=== PATIENT | female | born 1975 | race Caucasian/White ===

== ENCOUNTER 2017-01-03 11:30 | Emergency (ER) | payer MEDICAID ==
[~2017-01-03] VITALS: Ht 139.7 cm; Wt 49.0 kg
[~2017-01-03 11:30] MED LIST: ALPRAZOLAM0.5 M3 PO; BUPROPION HCL150 M1 PO; DEPO-PROVER150 MG/M3 IM
--- NOTE | 2017-01-03 12:19 | Urgent Treatment Center Report ---
History of Present Issue Date/Time Seen by Provider 01/03/17 1200 Visit Reason Pt arrived:Walked Presenting Problem:PT REPORTS PAIN IN BACK OF NECK X2, PT REPORTS PAIN IS CAUSING HER TO NOT SLEEP WELL. Location if Accident: Onset of symptoms date/time:01/01/17/ or onset unknown for:MEDICAL HX UNKNOWN Have you (or family members/close friends) recently traveled outside the [place]? N If Yes, where/when: Have you had exposure to infectious disease within the past month? TB? Other? Specify: Patient states that she was seen and treated last week here in the ER for fall, states that a couple days ago she felt like the muscle in the back of her neck on the right side was stiff. States that it is making it hard for her to sleep. State that it is sore and feels like muscle spasms Comment Patient has bilateral healing bruising around both eyes black, purple in color States that bruising been present since she fell on December 30 and was seen and treated here in the ER for the fall and had CT of head done on that day, denies any further LOC or any recent falls ALLERGIES Coded Allergies: No Known Allergies (08/13/15) Home Medications Reported Medications Bupropion Hcl (Bupropion HCl Sr) 150 MG PO QAM #30 Alprazolam 0.5 MG PO BID #60 TAB Medroxyprogesterone Acetate (Depo-Provera) 150 MG IM 3 MONTHS History Medical History General CAD? No Angina: No W[place]: No Hypertension? No Hyperlipidemia? No CHF? No DVT? No PE? No COPD? No Asthma? No Anemia? No GERD? No Gastric ulcers? No GI Bleed? No Hernia? No Thyroid Problems? No Hypothyroidism? No CVA? No Seizures? No Diabetes? No Renal Insuffiency? No UTI? No Stones? No BPH? No GB Disease: Yes Nephritic Syndrome? No Asplenia? No Hepatitis? No Sickle Cell Disease? No Arthritis? No Migraines? No Cataracts? No Glaucoma? No MRSA? No HIV? No TB? No Anxiety? No Depression? No Cancer? No Immunization HX DT/Tetanus 09/05/2009 Pneumonia Refuses Surgical Hx Previous Surgery?Y Gallbladd X 1 RN RADIOLOGY Hx LMP On Depo Med-LMP Unknown Family History Family HX Diabetes Yes CAD Yes Hypertension Yes Hyperlipidemia No Cancer Yes TB No Social History Smoking Hx Smoker: Never Smoker Tobacco: No Alcohol Alcohol: No Review of Systems All Other Systems Reviewed and Negative Comment Feel like she is having a muscle spasm in her neck after sleeping wrong and not been able to rest well for a couple of days Physical Exam Vital Signs Vital Signs Date Time Temp Pulse Resp B/P Pulse O2 O2 Flow FiO2 Ox Delivery Rate 01/03 1300 97.7 83 18 133/80 100 01/03 1154 97.7 83 18 133/80 100 01/03 1143 97.7 83 18 133/80 100 General Appearance normal appearance, WD/WN, no apparent distress, bilateral bruising noted to both eyes after fall last week Respiratory Status Yes: trachea midline, chest symmetrical, non tender chest. No: respiratory distress. Cardiovascular normal exam, regular rate/rhythm, no peripheral edema, no gallop Neurologic alert, physician chief of pathology II-XII nml as tested, normal exam, no motor/sensory deficits, oriented x 3 Medical Decision Making LABS/Meds/Orders Pt receiving controlled substance in ED? No Results/Orders Current Medication Orders Sig/Michael Start time Last Medication Dose Route Stop Time Status Admin Orphenadrine Citrate 0 .STK-MED ONE 01/03 1238 DC .ROUTE Orphenadrine Citrate 30 MG ONCE ONE 01/03 1230 DC 01/03 IM 01/03 1231 1241 Progress [facility] Progress Notes Date 01/03/17 Time 1222 Comment Patient educated that injection may make her drowsy, due to history of falls gwyn was educated on need to go home and lay down and apply heat to area. Rest today with family caring for her and only walking to the bathroom with assistance untill tomorrow and then use over the counter gel and cream for muscle pain Departure Departure Time of Disposition 1213 Disposition DC Home or Self Care(routine) Clinical Impression Primary Impression: Muscle spasm Condition STABLE Referrals Jennifer MERCER,Winston Abbasi (PCP): 3 Days-Call Office if no improvement in symptoms Patient Instructions DI for Muscle Spasm Additional Instructions Follow up with family doctor Over the counter topical creams and gels such as biofreeze can help with muscle pain Due to the history of falls be careful taking any medication that may make you drowsy of off balance Discharge Counseling Counseled pt/family regarding diagnosis, test results, medications/RX, home care, follow up needs at [phone]
--- NOTE | 2017-01-03 12:19 | Urgent Treatment Center Report ---
History of Present Issue Date/Time Seen by Provider 01/03/17 1200 Visit Reason Pt arrived:Walked Presenting Problem:PT REPORTS PAIN IN BACK OF NECK X2, PT REPORTS PAIN IS CAUSING HER TO NOT SLEEP WELL. Location if Accident: Onset of symptoms date/time:01/01/17/ or onset unknown for:MEDICAL HX UNKNOWN Have you (or family members/close friends) recently traveled outside the [place]? N If Yes, where/when: Have you had exposure to infectious disease within the past month? TB? Other? Specify: Patient states that she was seen and treated last week here in the ER for fall, states that a couple days ago she felt like the muscle in the back of her neck on the right side was stiff. States that it is making it hard for her to sleep. State that it is sore and feels like muscle spasms Comment Patient has bilateral healing bruising around both eyes black, purple in color States that bruising been present since she fell on December 30 and was seen and treated here in the ER for the fall and had CT of head done on that day, denies any further LOC or any recent falls ALLERGIES Coded Allergies: No Known Allergies (08/13/15) Home Medications Reported Medications Bupropion Hcl (Bupropion HCl Sr) 150 MG PO QAM #30 Alprazolam 0.5 MG PO BID #60 TAB Medroxyprogesterone Acetate (Depo-Provera) 150 MG IM 3 MONTHS History Medical History General CAD? No Angina: No [place]: No Hypertension? No Hyperlipidemia? No CHF? No DVT? No PE? No COPD? No Asthma? No Anemia? No GERD? No Gastric ulcers? No GI Bleed? No Hernia? No Thyroid Problems? No Hypothyroidism? No CVA? No Seizures? No Diabetes? No Renal Insuffiency? No UTI? No Stones? No BPH? No GB Disease: Yes Nephritic Syndrome? No Asplenia? No Hepatitis? No Sickle Cell Disease? No Arthritis? No Migraines? No Cataracts? No Glaucoma? No MRSA? No HIV? No TB? No Anxiety? No Depression? No Cancer? No Immunization HX DT/Tetanus 09/05/2009 Pneumonia Refuses Surgical Hx Previous Surgery?Y Gallbladd X 1 [employer] Hx LMP On Depo Med-LMP Unknown Family History Family HX Diabetes Yes CAD Yes Hypertension Yes Hyperlipidemia No Cancer Yes TB No Social History Smoking Hx Smoker: Never Smoker Tobacco: No Alcohol Alcohol: No Review of Systems All Other Systems Reviewed and Negative Comment Feel like she is having a muscle spasm in her neck after sleeping wrong and not been able to rest well for a couple of days Physical Exam Vital Signs Vital Signs Date Time Temp Pulse Resp B/P Pulse O2 O2 Flow FiO2 Ox Delivery Rate 01/03 1300 97.7 83 18 133/80 100 01/03 1154 97.7 83 18 133/80 100 01/03 1143 97.7 83 18 133/80 100 General Appearance normal appearance, WD/WN, no apparent distress, bilateral bruising noted to both eyes after fall last week Respiratory Status Yes: trachea midline, chest symmetrical, non tender chest. No: respiratory distress. 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 No Results/Orders Current Medication Orders Sig/Michael Start time Last Medication Dose Route Stop Time Status Admin Orphenadrine Citrate 0 .STK-MED ONE 01/03 1238 DC .ROUTE Orphenadrine Citrate 30 MG ONCE ONE 01/03 1230 DC 01/03 IM 01/03 1231 1241 Progress [facility] Progress Notes Date 01/03/17 Time 1222 Comment Patient educated that injection may make her drowsy, due to history of falls gwyn was educated on need to go home and lay down and apply heat to area. Rest today with family caring for her and only walking to the bathroom with assistance untill tomorrow and then use over the counter gel and cream for muscle pain Departure Departure Time of Disposition 1213 Disposition DC Home or Self Care(routine) Clinical Impression Primary Impression: Muscle spasm Condition STABLE Referrals Jennifer MERCER,Winston Abbasi (PCP): 3 Days-Call Office if no improvement in symptoms Patient Instructions DI for Muscle Spasm Additional Instructions Follow up with family doctor Over the counter topical creams and gels such as biofreeze can help with muscle pain Due to the history of falls be careful taking any medication that may make you drowsy of off balance Discharge Counseling Counseled pt/family regarding diagnosis, test results, medications/RX, home care, follow up needs at [phone]
--- OUTSIDE RECORDS SUMMARY | 2017-01-03 12:34 | External Medical Summary Rpt ---
Author Author , JASON GOMEZ Address Unknown Phone [email or web address] Immunization Name Date Rout CVX Reac Dose Comm Prov Is Faci e tion ent ider Refu lity Give sed n Tdap 02- 115 999 Hist H149 No H149 , 3-20 oric Adso 07 al rbed Info rmat ion - Sour ce Unsp ecif ied
--- OUTSIDE RECORDS SUMMARY | 2017-01-03 12:34 | External Medical Summary Rpt ---
Author Author , JASON Organization JASON Address Unknown Phone [email or web address] Care Team Providers Care External Auditor Name Role Phone MAURICE BRAYDEN, MAURICE Unavailable Unavailable BRAYDEN FRYMAN EUG, FRYMAN Unavailable Unavailable EUG JOSE BRAYDEN, JOSE Unavailable Unavailable [facility] Unavailable Un[facility], [facility] Unavailable Unavailable [facility], [facility] LISA DEANA, LISA DEANA Unavailable Unavailable LISA DEANA, LISA DEANA Unavailable Unavailable [facility], Unavailable Unavailable [facility], Unavailable Unavailable PLLC, [facility], [facility] ELSA GUARDADO, Unavailable Unavailable ELSA GUARDADO SOTINGVALENTINA RIVERA, Unavailable Unavailable SOTINGTAHMINANJerod RIVERA [facility] Unavailable Unavailable DEPT [facility], [facility] DEPT [facility] Unavailable Unavailable DE[facility], [facility] DEPT [facility], Unavailable Unavailable [facility] Purpose Continuity of Care Document - 11-24-2013 through 2016 Problems Code Diagnosis DOS Provider Status [id number] ENCOUNTER 11-18-2016 [facility] BULB INSPECTOR EXAM DISTRICT GENERAL RTN [facility] DEPT W/O RUSS ABNORMAL FIND Z1239 ENCOUNTER 11-18-2016 [facility] OTHER DISTRICT SCREENING [facility] DEPT MALIG RUSS NEOPLASM BREAST Q44510 ENCOUNTER 11-18-2016 [facility] INITIAL DISTRICT PRESCRIPTIO [facility] DEPT N INJECT RUSS CONTRACEPT Z3189 ENCOUNTER 11-18-2016 [facility] FOR OTHER DISTRICT PROCREATIVE [facility] DEPT MANAGEMENT RUSS [id number] OTHER LONG 11-07-2016 [facility] CURRENT INC DRUG THERAPY H5213 MYOPIA 10-08-2015 LISA DEANA BILATERAL [id number] CONTUSION 08-13-2015 [facility] PERIOCULAR INC AREA INIT ENC [id number] CONTUSION 08-13-2015 [facility] TISSUES RT EYE INIT Q52807 PERSONAL 08-13-2015 [facility] NICOTINE INC DEPENDENCE 7099 UNSPECIFIED 11-02-2014 [facility] SKIN&SUBCUT ANEOUS TISSUE 3671 MYOPIA 10-09-2014 MARIA L LEBLANC 1104 DERMATOPHYT 09-21-2014 [facility] OSIS OF PHYSICIANS FOOT GROUP 460 ACUTE 06-14-2014 [facility] NASOPHARYNG PHYSICIANS ITIS GROUP 80292 OTHER 11-24-2013 [facility] FATIGUE INC Medications Na ND Rx Da Fi Fi Am Da Di Ph RX Ph St me C No te ll ll ou ys ag ar # ys at rm s nt no ma ic us Or Da si cy ia de te s n re d BU 69 05 06 30 30 00 HO Ac NH 09 -1 -1 .0 00 ME ti OP 70 2- 6- 00 06 TO ve IO 87 20 20 08 WN N 80 17 17 69 HC 3 48 PH L AR SR MA CY 15 0 OF MG CY TA NT BL HI ET AN A AL 59 05 06 60 30 00 HO Ac NH 76 -0 -0 .0 00 ME ti AZ 23 5- 9- 00 04 TO ve OL 72 20 20 02 WN AM 00 17 17 14 4 83 PH 0. AR 5 MA MG CY TA OF BL ET CY NT HI AN A BU 69 04 05 30 30 00 HO Ac NH 09 -1 -1 .0 00 ME ti OP 70 3- 9- 00 06 TO ve IO 87 20 20 07 WN N 80 17 17 60 HC 3 60 PH L AR SR MA CY 15 0 OF MG CY TA NT BL HI ET AN A AL 59 04 05 60 30 00 HO Ac NH 76 -0 -0 .0 00 ME ti AZ 23 4- 5- 00 04 TO ve OL 72 20 20 02 WN AM 00 17 17 14 4 83 PH 0. AR 5 MA MG CY TA OF BL ET CY NT HI AN A BU 69 03 04 30 30 00 HO Ac NH 09 -1 -1 .0 00 ME ti OP 70 0- 4- 00 06 TO ve IO 87 20 20 07 WN N 80 17 17 60 HC 3 60 PH L AR SR MA CY 15 0 OF MG CY TA NT BL HI ET AN A AL 59 02 03 60 30 00 HO Ac NH 76 -2 -3 .0 00 ME ti AZ 23 4- 1- 00 04 TO ve OL 72 20 20 02 WN AM 00 17 17 03 4 48 PH 0. AR 5 MA MG CY TA OF BL ET CY NT HI AN A BU 69 02 03 30 30 00 HO Ac NH 09 -1 -1 .0 00 ME ti OP 70 0- 7- 00 06 TO ve IO 87 20 20 07 WN N 80 17 17 60 HC 3 60 PH L AR SR MA CY 15 0 OF MG CY TA NT BL HI ET AN A AL 59 01 03 60 30 00 HO Ac NH 76 -2 -0 .0 00 ME ti AZ 23 6- 3- 00 04 TO ve OL 72 20 20 02 WN AM 00 17 17 03 4 48 PH 0. AR 5 MA MG CY TA OF BL ET CY NT HI AN A BU 69 01 02 30 30 00 HO Ac NH 09 -1 -1 .0 00 ME ti OP 70 1- 0- 00 06 TO ve IO 87 20 20 07 WN N 80 17 17 08 HC 3 74 PH L AR SR MA CY 15 0 OF MG CY TA NT BL HI ET AN A AL 59 12 01 60 30 00 HO Ac NH 76 -2 -2 .0 00 ME ti AZ 23 1- 0- 00 04 TO ve OL 72 20 20 02 WN AM 00 16 17 03 4 48 PH 0. AR 5 MA MG CY TA OF BL ET CY NT HI AN A BU 69 12 01 30 30 00 HO Ac NH 09 -1 -1 .0 00 ME ti OP 70 3- 3- 00 06 TO ve IO 87 20 20 07 WN N 80 16 17 08 HC 3 74 PH L AR SR MA CY 15 0 OF MG CY TA NT BL HI ET AN A Procedures Procedure DOS Code Location Performer Comment CYT 21613 [facility] LABS, PICKLESIM CERV/VAG 7 [facility] ER JR AUTO THIN LAYER PREP MNL SCREEN INJECTION J1050 [facility] MEDROXYPR TH DEPT [facility] RUSS E ACETATE 1 MG DRUG TEST 94807 [facility] PRSMV 7 [facility] QUAL DIR INC INC OPTICAL OBS PER DAY OPHTH 02120 [facility] MEDICAL 6 XM&EVAL COMPRHNSV ESTAB PT 1/> OPHTH 71915 [facility] MEDICAL 5 XM&EVAL COMPRHNSV ESTAB PT 1/> CYANOCOBA 78609 [facility] D[facility] ANASTASIIA 4 [facility] VITAMIN INC INC B-[address] [place] [address] [facility] ROBINERFIE THYROID 4 [facility] LD IV ALL STIMULATI INC NG HORMONE TSH COMPREHEN 46313 [facility]TY SIVE 4 [facility] METABOLIC INC INC PANEL BLOOD 81983 [facility] DOVE COUNT 4 [facility] COMPLETE INC INC AUTO&AUTO DIFRNTL WBC LIPID 15036 [facility] PANEL 4 [facility] INC INC HEMOGLOBI 01731 [facility] DOVE N 4 [facility] GLYCOSYLA [place] [address] [facility] DOVE THYROXINE 4 [facility] H[facility] TOTAL INC INC Encounters Encounter Start End Date Code Location Performer Type Date PERIODIC 72565 [facility] 7 7 [facility] DISTRICT E MED EST HLTH DEPT HLTH DEPT PATIENT RUSS RUSS 18-[address] [facility] - 7 7 [facility] - 6 6 [facility] T EMERGENCY 11785 MADDIE BALLARD 6 6 PHYSICIAN U NICOLE [facility] S, PLL[facility] T VISIT MODERATE SEVERITY EMERGENCY 53307 PETTY 6 6 [facility] T VISIT LIMITED/M INOR PROB OFFICE 59731 [facility] RICHARDS OUTPATIEN 5 5 [facility] T VISIT HOSPITAL 15 MINUTES OFFICE 98024 [facility] JOSE OUTPATIEN 5 5 PHYSICIAN BRAYDEN T VISIT S GROUP 15 MINUTES OFFICE 63416 [facility] JOSE OUTPATIEN 5 5 PHYSICIAN BRAYDEN T VISIT S GROUP 15 MINUTES OFFICE 65766 [facility] JOSE OUTPATIEN 5 5 PHYSICIAN BRAYDEN T VISIT S GROUP 15 MINUTES OFFICE 62200 [facility] FRYMAN OUTPATIEN 4 4 PHYSICIAN EUG T VISIT S GROUP 10 MINUTES HOSPITAL PETTY - 4 4 [facility] OUTPATIEN [facility] T
--- OUTSIDE RECORDS SUMMARY | 2017-01-03 12:34 | External Medical Summary Rpt ---
Author Author , JASON Organization JASON Address Unknown Phone [email or web address] Care Team Providers Care Optical Fabrication Technician Name Role Phone MAURICE BRAYDEN, MAURICE Unavailable Unavailable BRAYDEN FRYMAN EUG, FRYMAN Unavailable Unavailable EUG JOSE BRAYDEN, JOSE Unavailable Unavailable [facility] Unavailable Unavailable INC, [facility] Unavailable Unavailable [facility], [facility] LISA DEANA, LISA DEANA Unavailable Unavailable LISA DEANA, LISA DEANA Unavailable Unavailable [facility], Unavailable Unavailable [facility], Unavailable Unavailable PLLC, [facility], [facility] ELSA GUARDADO, Unavailable Unavailable ELSA GUARDADO SOTINGVALENTINA RIVERA, Unavailable Unavailable SOTINGTAHMINANJerod RIVERA [facility] Unavailable Unavailable DEPT [facility], [facility] DEPT [facility] Unavailable Unavailable DEPT R[facility], [facility] DEPT 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 RTN [facility] DEPT W/O RUSS ABNORMAL FIND Z1239 ENCOUNTER 11-18-2016 [facility] OTHER DISTRICT SCREENING [facility] DEPT MALIG RUSS NEOPLASM BREAST R08533 ENCOUNTER 11-18-2016 [facility] INITIAL DISTRICT PRESCRIPTIO [facility] DEPT N INJECT RUSS CONTRACEPT Z3189 ENCOUNTER 11-18-2016 [facility] FOR OTHER DISTRICT PROCREATIVE [facility] DEPT MANAGEMENT RUSS [id number] OTHER LONG 11-07-2016 [facility] CURRENT INC DRUG THERAPY H5213 MYOPIA 10-08-2015 LISA DEANA BILATERAL [id number] CONTUSION 08-13-2015 [facility] PERIOCULAR INC AREA INIT ENC [id number] CONTUSION 08-13-2015 [facility] TISSUES RT EYE INIT D40831 PERSONAL 08-13-2015 [facility] NICOTINE INC DEPENDENCE 7099 UNSPECIFIED 11-02-2014 [facility] SKIN&SUBCUT ANEOUS TISSUE 3671 MYOPIA 10-09-2014 MARIA L LEBLANC 1104 DERMATOPHYT 09-21-2014 [facility] OSIS OF PHYSICIANS FOOT GROUP 460 ACUTE 06-14-2014 [facility] NASOPHARYNG PHYSICIANS ITIS GROUP 08132 OTHER 11-24-2013 [facility] FAT[facility] INC Medications Na ND Rx Da Fi Fi Am Da Di Ph RX Ph St me C No te ll ll ou ys ag ar # ys at rm s nt no ma ic us Or Da si cy ia de te s n re d BU 69 05 06 30 30 00 HO Ac CO 09 -1 -1 .0 00 ME ti OP 70 2- 6- 00 06 TO ve IO 87 20 20 08 WN N 80 17 17 69 HC 3 48 PH L AR SR MA CY 15 0 OF MG CY TA NT BL HI ET AN A AL 59 05 06 60 30 00 HO Ac CO 76 -0 -0 .0 00 ME ti AZ 23 5- 9- 00 04 TO ve OL 72 20 20 02 WN AM 00 17 17 14 4 83 PH 0. AR 5 MA MG CY TA OF BL ET CY NT HI AN A BU 69 04 05 30 30 00 HO Ac CO 09 -1 -1 .0 00 ME ti OP 70 3- 9- 00 06 TO ve IO 87 20 20 07 WN N 80 17 17 60 HC 3 60 PH L AR SR MA CY 15 0 OF MG CY TA NT BL HI ET AN A AL 59 04 05 60 30 00 HO Ac CO 76 -0 -0 .0 00 ME ti AZ 23 4- 5- 00 04 TO ve OL 72 20 20 02 WN AM 00 17 17 14 4 83 PH 0. AR 5 MA MG CY TA OF BL ET CY NT HI AN A BU 69 03 04 30 30 00 HO Ac CO 09 -1 -1 .0 00 ME ti OP 70 0- 4- 00 06 TO ve IO 87 20 20 07 WN N 80 17 17 60 HC 3 60 PH L AR SR MA CY 15 0 OF MG CY TA NT BL HI ET AN A AL 59 02 03 60 30 00 HO Ac CO 76 -2 -3 .0 00 ME ti AZ 23 4- 1- 00 04 TO ve OL 72 20 20 02 WN AM 00 17 17 03 4 48 PH 0. AR 5 MA MG CY TA OF BL ET CY NT HI AN A BU 69 02 03 30 30 00 HO Ac CO 09 -1 -1 .0 00 ME ti OP 70 0- 7- 00 06 TO ve IO 87 20 20 07 WN N 80 17 17 60 HC 3 60 PH L AR SR MA CY 15 0 OF MG CY TA NT BL HI ET AN A AL 59 01 03 60 30 00 HO Ac CO 76 -2 -0 .0 00 ME ti AZ 23 6- 3- 00 04 TO ve OL 72 20 20 02 WN AM 00 17 17 03 4 48 PH 0. AR 5 MA MG CY TA OF BL ET CY NT HI AN A BU 69 01 02 30 30 00 HO Ac CO 09 -1 -1 .0 00 ME ti OP 70 1- 0- 00 06 TO ve IO 87 20 20 07 WN N 80 17 17 08 HC 3 74 PH L AR SR MA CY 15 0 OF MG CY TA NT BL HI ET AN A AL 59 12 01 60 30 00 HO Ac CO 76 -2 -2 .0 00 ME ti AZ 23 1- 0- 00 04 TO ve OL 72 20 20 02 WN AM 00 16 17 03 4 48 PH 0. AR 5 MA MG CY TA OF BL ET CY NT HI AN A BU 69 12 01 30 30 00 HO Ac CO 09 -1 -1 .0 00 ME ti OP 70 3- 3- 00 06 TO ve IO 87 20 20 07 WN N 80 16 17 08 HC 3 74 PH L AR SR MA CY 15 0 OF MG CY TA NT BL HI ET AN A Procedures Procedure DOS Code Location Performer [place]T 37701 [facility] LABS, PICKLESIM CERV/VAG 7 [facility] ER JR AUTO THIN LAYER PREP MNL SCREEN INJECTION J1050 [facility] MEDROXYPR TH DEPT [facility] RUSS E ACETATE 1 MG DRUG TEST 75866 [facility] PRSMV [facility] QUAL DIR INC INC OPTICAL OBS PER DAY OPHTH 83319 [facility] MEDICAL 6 XM&EVAL COMPRHNSV ESTAB PT 1/> OPHTH 39609 [facility] MEDICAL 5 XM&EVAL COMPRHNSV ESTAB PT 1/> CYANOCOBA 95450 [facility] ANASTASIIA 4 [facility] VITAMIN INC INC B-12 [place] [address] [facility] ROBINERFIE THYROID 4 [facility] LD IV ALL STIMULATI INC NG HORMONE TSH COMPREHEN 75831 [facility] SIVE 4 [facility] METABOLIC INC INC PANEL BLOOD 75582 [facility] COUNT 4 [facility] COMPLETE INC INC AUTO&AUTO DIFRNTL WBC LIPID 24610 [facility] PANEL 4 [facility] INC INC HEMOGLOBI 31945 [facility] D[facility] N 4 [facility] GLYCOSYLA [place] [address] [facility] THYROXINE 4 [facility] TOTAL INC INC Encounters Encounter Start End Date Code Location Performer Type Date PERIODIC 83088 [facility] E MED EST HLTH DEPT HLTH DEPT PATIENT RUSS RUSS 18-39 YRS [facility] - 7 7 [facility] - 6 6 [facility] 03014 MADDIE BALLARD 6 6 PHYSICIAN U NICOLE [facility], [facility] T VISIT MODERATE SEVERITY EMERGENCY 94005 [facility] 6 6 [facility] T VISIT LIMITED/M INOR PROB OFFICE 06978 [facility] RICHARDS OUTPATIEN 5 5 [facility] T VISIT HOSPITAL 15 MINUTES OFFICE 76799 [facility] JOSE OUTPATIEN 5 5 PHYSICIAN BRAYDEN T VISIT S GROUP 15 MINUTES OFFICE 87722 [facility] JOSE OUTPATIEN 5 5 PHYSICIAN BRAYDEN T VISIT S GROUP 15 MINUTES OFFICE 63036 [facility] JOSE OUTPATIEN 5 5 PHYSICIAN [place]RAYDEN T VISIT S GROUP 15 MINUTES OFFICE 17870 [facility] FRYMAN OUTPATIEN 4 4 PHYSICIAN EUG T VISIT S GROUP 10 MINUTES HOSPITAL PETTY - 4 4 [facility] OUTPATIEN [facility] T
--- OUTSIDE RECORDS SUMMARY | 2017-01-03 12:34 | External Medical Summary Rpt ---
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 Name Role Phone MAURICE BRAYDEN, MAURICE Unavailable Unavailable BRAYDEN FRYMAN EUG, FRYMAN Unavailable Unavailable EUG JOSE BRAYDEN, JOSE Unavailable Unavailable [facility] Unavailable Un[facility], [facility] Unavailable [facility] [place] LISA DEANA, LISA DEANA Unavailable Unavailable LISA DEANA, LISA DEANA Unavailable Unavailable [facility], Unavailable Unavailable [facility], Unavailable Unavailable [facility], [facility] ELSA GUARDADO, Unavailable Unavailable ELSA GUARDADO SOSHAZIA RIVERA, Unavailable Unavailable SOSHAZIA RIVERA [facility] Unavailable Unavailable DEPT [facility] Unavailable Unavailable DEPT [facility], [facility], Unavailable Unavailable [facility] Purpose Continuity of Care Document - 11-24-2013 through 2016 Problems Code Diagnosis DOS Provider Status [id number] ENCOUNTER 11-18-2016 [facility] 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 EXAM DISTRICT GENERAL RTN HLTH DEPT W/O [place] ABNORMAL FIND Z1239 ENCOUNTER 11-18-2016 [facility] OTHER DISTRICT SCREENING [facility] DEPT MALIG [place] NEOPLASM BREAST [id number] ENCOUNTER 11-18-2016 [facility] INITIAL DISTRICT PRESCRIPTIO TH DEPT N INJECT [facility] CONTRACEPT Z3189 ENCOUNTER 11-18-2016 [facility] FOR OTHER DISTRICT PROCREATIVE [facility] DEPT MANAGEMENT RUSS [id number] OTHER LONG 11-07-2016 [facility] CURRENT INC DRUG THERAPY H5213 MYOPIA 10-08-2015 LISA DEANA BILATERAL [id number] CONTUSION 08-13-2015 [facility] RT [facility] PERIOCULAR INC AREA INIT ENC [id number] CONTUSION 08-13-2015 [facility] TISSUES RT EYE INIT [id number] PERSONAL 08-13-2015 [facility] NICOTINE INC DEPENDENCE 7099 UNSPECIFIED 11-02-2014 [facility] DISORDER [facility] SKIN&SUBCUT ANEOUS TISSUE 3671 MYOPIA 10-09-2014 MARIA L DEANA 1104 DERMATOPHYT 09-21-2014 [facility] OSIS OF PHYSICIANS FOOT GROUP 460 ACUTE 06-14-2014 [facility] NASOPHARYNG PHYSICIANS ITIS GROUP 67827 OTHER 11-24-2013 [facility] FATIGUE INC [id number] R55 SYNCOPE AND COLLAPSE Medications Na ND Rx Da Fi Fi Am Da Di Ph RX Ph St me C No te ll ll ou ys ag ar # ys at rm s nt no ma ic us Or Da si cy ia de te s n re d BU 69 05 06 30 30 00 HO Ac HI 09 -1 -1 .0 00 ME ti OP 70 2- 6- 00 06 TO ve IO 87 20 20 08 WN N 80 17 17 69 HC 3 48 PH L AR SR MA CY 15 0 OF MG CY TA NT BL HI ET AN A AL 59 05 06 60 30 00 HO Ac HI 76 -0 -0 .0 00 ME ti AZ 23 5- 9- 00 04 TO ve OL 72 20 20 02 WN AM 00 17 17 14 4 83 PH 0. AR 5 MA MG CY TA OF BL ET CY NT HI AN A BU 69 04 05 30 30 00 HO Ac HI 09 -1 -1 .0 00 ME ti OP 70 3- 9- 00 06 TO ve IO 87 20 20 07 WN N 80 17 17 60 HC 3 60 PH L AR SR MA CY 15 0 OF MG CY TA NT BL HI ET AN A AL 59 04 05 60 30 00 HO Ac HI 76 -0 -0 .0 00 ME ti AZ 23 4- 5- 00 04 TO ve OL 72 20 20 02 WN AM 00 17 17 14 4 83 PH 0. AR 5 MA MG CY TA OF BL ET CY NT HI AN A BU 69 03 04 30 30 00 HO Ac HI 09 -1 -1 .0 00 ME ti OP 70 0- 4- 00 06 TO ve IO 87 20 20 07 WN N 80 17 17 60 HC 3 60 PH L AR SR MA CY 15 0 OF MG CY TA NT BL HI ET AN A AL 59 02 03 60 30 00 HO Ac HI 76 -2 -3 .0 00 ME ti AZ 23 4- 1- 00 04 TO ve OL 72 20 20 02 WN AM 00 17 17 03 4 48 PH 0. AR 5 MA MG CY TA OF BL ET CY NT HI AN A BU 69 02 03 30 30 00 HO Ac HI 09 -1 -1 .0 00 ME ti OP 70 0- 7- 00 06 TO ve IO 87 20 20 07 WN N 80 17 17 60 HC 3 60 PH L AR SR MA CY 15 0 OF MG CY TA NT BL HI ET AN A AL 59 01 03 60 30 00 HO Ac HI 76 -2 -0 .0 00 ME ti AZ 23 6- 3- 00 04 TO ve OL 72 20 20 02 WN AM 00 17 17 03 4 48 PH 0. AR 5 MA MG CY TA OF BL ET CY NT HI AN A BU 69 01 02 30 30 00 HO Ac HI 09 -1 -1 .0 00 ME ti OP 70 1- 0- 00 06 TO ve IO 87 20 20 07 WN N 80 17 17 08 HC 3 74 PH L AR SR MA CY 15 0 OF MG CY TA NT BL HI ET AN A AL 59 12 01 60 30 00 HO Ac HI 76 -2 -2 .0 00 ME ti AZ 23 1- 0- 00 04 TO ve OL 72 20 20 02 WN AM 00 16 17 03 4 48 PH 0. AR 5 MA MG CY TA OF BL ET CY NT HI AN A BU 69 12 01 30 30 00 HO Ac HI 09 -1 -1 .0 00 ME ti OP 70 3- 3- 00 06 TO ve IO 87 20 20 07 WN N 80 16 17 08 HC 3 74 PH L AR SR MA CY 15 0 OF MG CY TA NT BL HI ET AN A Results Labs Lab Lab Date Result Refere Interp Status Commen Order Detail nces retati t Range on Drugs identified in Urine by Screen method (12-30-2016 20:20) Ampheta NEGATIV <1000 complet mine 017 E ed [Presen 20:20 ce] in Urine by Screen method 11-Hydr NEGATIV <50 complet oxy 017 E ed delta-9 20:20 tetrahy drocann abinol [Presen ce] in Unspeci fied specime n Procedures Procedure DOS Code Location Performer Comment INJECTION J1050 [facility] DEPT [facility] DEPT OGESTERON RUSS RUSS E ACETATE 1 MG CYTP 69032 [facility], PICKLESIM CERV/VAG 7 LLC ER JR AUTO THIN LAYER PREP MNL SCREEN DRUG TEST 64294 [facility] PRSMV 7 [facility] QUAL DIR INC INC OPTICAL OBS PER DAY OPHTH 60608 [facility] MEDICAL 6 XM&EVAL COMPRHNSV ESTAB PT 1/> OPHTH 22964 [facility] MEDICAL 5 XM&EVAL COMPRHNSV ESTAB PT 1/> [place] [address] [facility] HALLFIJeanine THYROID 4 [facility] LD IV ALL STIMULATI INC NG HORMONE TSH LIPID 27137 [facility] PANEL 4 [facility] INC INC HEMOGLOBI 30057 [facility] N 4 [facility] GLYCOSYLA INC INC ROSHAN A1C BLOOD 55948 [facility] COUNT 4 [facility] COMPLETE INC INC AUTO&[place] [address] [facility] THYROXINE 4 [facility] TOTAL INC INC CYANOCOBA 10816 [facility] ANASTASIIA 4 [facility] VITAMIN INC INC B-12 COMPREHEN 18738 [facility] SIVE 4 [facility] METABOLIC INC INC PANEL Encounters Encounter Start End Date Code Location Performer Type Date PERIODIC 28449 [facility] E MED EST HLTH DEPT HLTH DEPT PATIENT RUSS RUSS 18-39 YRS [facility] - 7 7 [facility] OUTPATIEN INC T EMERGENCY 09835 [facility] 6 6 [facility] DEPARTMEN INC T VISIT LIMITED/M INOR PROB EMERGENCY 39778 [facility] BALLARD 6 6 PHYSICIAN U [facility] T VISIT MODERATE SEVERITY [facility]OSPITAL [facility] - 6 6 [facility] OUTPATIEN INC T OFFICE 78192 [facility] OUTPATIEN 5 5 [facility] T VISIT HOSPITAL 15 MINUTES OFFICE 63336 [facility] JOSE OUTPATIEN 5 5 PHYSICIAN BRAYDEN T VISIT S GROUP 15 MINUTES OFFICE 61471 [facility] OUTPATIEN 5 5 PHYSICIAN [place]RAYDEN T VISIT S GROUP 15 MINUTES OFFICE 33776 [facility] OUTPATIEN 5 5 PHYSICIAN [place]RAYDEN T VISIT S GROUP 15 MINUTES OFFICE 46099 [facility] 4 4 PHYSICIAN EUG T VISIT S GROUP 10 MINUTES [facility] PETTY - 4 4 [facility] OUTPATIEN [facility] T
--- OUTSIDE RECORDS SUMMARY | 2017-01-03 12:34 | External Medical Summary Rpt ---
Author Author , JASON GOMEZ Address Unknown Phone [email or web address] Care Team Providers Care Manager Travel Name Role Phone MAURICE BRAYDEN, MAURICE Unavailable Unavailable BRAYDEN FRYMAN EUG, FRYMAN Unavailable Unavailable EUG JOSE BRAYDEN, JOSE Unavailable Unavailable [facility] Unavailable Unavailable INC, [facility] Unavailable [facility], [facility] LISA DEANA, LISA DEANA Unavailable Unavailable LISA DEANA, LISA DEANA Unavailable Unavailable [facility], Unavailable Unavailable [facility], Unavailable Unavailable PLLC, [facility] ELSA GUARDADO, Unavailable Unavailable ELSA GUARDADO SOSHAZIA RIVERA, Unavailable Unavailable SOSHAZIA RIVERA [facility] Unavailable Unavailable [facility]PT [facility] Unavailable Unavailable DEPT [facility], 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 EXAM DISTRICT GENERAL RTN HLTH DEPT W/O RUSS ABNORMAL FIND Z1239 ENCOUNTER 11-18-2016 [facility] OTHER DISTRICT SCREENING [facility] DEPT MALIG RUSS NEOPLASM BREAST [id number] ENCOUNTER 11-18-2016 [facility] INITIAL DISTRICT PRESCRIPTIO TH DEPT N INJECT RUSS CONTRACEPT Z3189 ENCOUNTER 11-18-2016 [facility] FOR OTHER DISTRICT PROCREATIVE [facility] DEPT MANAGEMENT RUSS [id number] OTHER LONG 11-07-2016 [facility] CURRENT INC DRUG THERAPY H5213 MYOPIA 10-08-2015 LISA DEANA BILATERAL [id number] CONTUSION 08-13-2015 [facility] RT [facility] PERIOCULAR INC AREA INIT ENC [id number] CONTUSION 08-13-2015 [facility] TISSUES RT EYE INIT Z23582 PERSONAL 08-13-2015 [facility] NICOTINE INC DEPENDENCE 7099 UNSPECIFIED 11-02-2014 [facility] DISORDER [facility] SKIN&SUBCUT ANEOUS TISSUE 3671 MYOPIA 10-09-2014 MARIA L DEANA 1104 DERMATOPHYT 09-21-2014 [facility] OSIS OF PHYSICIANS FOOT GROUP 460 ACUTE 06-14-2014 [facility] NASOPHARYNG PHYSICIANS ITIS GROUP 10975 OTHER 11-24-2013 [facility] FATIGUE INC [id number] R55 SYNCOPE AND COLLAPSE Medications Na ND Rx Da Fi Fi Am Da Di Ph RX Ph St me C No te ll ll ou ys ag ar # ys at rm s nt no ma ic us Or Da si cy ia de te s n re d BU 69 05 06 30 30 00 HO Ac UT 09 -1 -1 .0 00 ME ti OP 70 2- 6- 00 06 TO ve IO 87 20 20 08 WN N 80 17 17 69 HC 3 48 PH L AR SR MA CY 15 0 OF MG CY TA NT BL HI ET AN A AL 59 05 06 60 30 00 HO Ac UT 76 -0 -0 .0 00 ME ti AZ 23 5- 9- 00 04 TO ve OL 72 20 20 02 WN AM 00 17 17 14 4 83 PH 0. AR 5 MA MG CY TA OF BL ET CY NT HI AN A BU 69 04 05 30 30 00 HO Ac UT 09 -1 -1 .0 00 ME ti OP 70 3- 9- 00 06 TO ve IO 87 20 20 07 WN N 80 17 17 60 HC 3 60 PH L AR SR MA CY 15 0 OF MG CY TA NT BL HI ET AN A AL 59 04 05 60 30 00 HO Ac UT 76 -0 -0 .0 00 ME ti AZ 23 4- 5- 00 04 TO ve OL 72 20 20 02 WN AM 00 17 17 14 4 83 PH 0. AR 5 MA MG CY TA OF BL ET CY NT HI AN A BU 69 03 04 30 30 00 HO Ac UT 09 -1 -1 .0 00 ME ti OP 70 0- 4- 00 06 TO ve IO 87 20 20 07 WN N 80 17 17 60 HC 3 60 PH L AR SR MA CY 15 0 OF MG CY TA NT BL HI ET AN A AL 59 02 03 60 30 00 HO Ac UT 76 -2 -3 .0 00 ME ti AZ 23 4- 1- 00 04 TO ve OL 72 20 20 02 WN AM 00 17 17 03 4 48 PH 0. AR 5 MA MG CY TA OF BL ET CY NT HI AN A BU 69 02 03 30 30 00 HO Ac UT 09 -1 -1 .0 00 ME ti OP 70 0- 7- 00 06 TO ve IO 87 20 20 07 WN N 80 17 17 60 HC 3 60 PH L AR SR MA CY 15 0 OF MG CY TA NT BL HI ET AN A AL 59 01 03 60 30 00 HO Ac UT 76 -2 -0 .0 00 ME ti AZ 23 6- 3- 00 04 TO ve OL 72 20 20 02 WN AM 00 17 17 03 4 48 PH 0. AR 5 MA MG CY TA OF BL ET CY NT HI AN A BU 69 01 02 30 30 00 HO Ac UT 09 -1 -1 .0 00 ME ti OP 70 1- 0- 00 06 TO ve IO 87 20 20 07 WN N 80 17 17 08 HC 3 74 PH L AR SR MA CY 15 0 OF MG CY TA NT BL HI ET AN A AL 59 12 01 60 30 00 HO Ac UT 76 -2 -2 .0 00 ME ti AZ 23 1- 0- 00 04 TO ve OL 72 20 20 02 WN AM 00 16 17 03 4 48 PH 0. AR 5 MA MG CY TA OF BL ET CY NT HI AN A BU 69 12 01 30 30 00 HO Ac UT 09 -1 -1 .0 00 ME ti [...] Performer Comment INJECTION J1050 [facility] MEDROXYPR [facility] DEPT [facility] DEPT OGESTERON RUSS RUSS E ACETATE 1 MG CYTP 80286 [facility], PICKLESIM CERV/VAG 7 LLC ER JR AUTO THIN LAYER PREP MNL SCREEN DRUG TEST 91709 [facility] QUAL DIR INC INC OPTICAL OBS PER DAY OPHTH 06267 [facility] MEDICAL 6 XM&EVAL COMPRHNSV ESTAB PT 1/> OPHTH 57841 [facility] MEDICAL 5 XM&EVAL COMPRHNSV ESTAB PT 1/> [place] [address] [facility] HALLFIJeanine THYROID 4 [facility] LD IV ALL STIMULATI INC NG HORMONE TSH LIPID 57269 [facility] PANEL [facility] INC INC HEMOGLOBI 42512 [facility] N 4 [facility] GLYCOSYLA INC INC ROSHAN A1C BLOOD 57180 [facility] COUNT 4 [facility] COMPLETE INC INC AUTO&[place] [address] [facility] THYROXINE 4 [facility] TOTAL INC INC CYANOCOBA 23244 [facility] ANASTASIIA 4 [facility] VITAMIN INC INC B-12 COMPREHEN 33285 [facility] SIVE [facility] METABOLIC INC INC PANEL Encounters Encounter Start End Date Code Location Performer Type Date PERIODIC 99947 [facility] E MED EST HLTH DEPT HLTH DEPT PATIENT RSUS RUSS 18-39 YRS [facility]TY - 7 7 [facility] OUTPATIEN INC T EMERGENCY 30796 [facility] 6 6 [facility] DEPARTMEN INC T VISIT LIMITED/M INOR PROB EMERGENCY 36922 MADDIE BALLARD 6 6 PHYSICIAN U [facility] T VISIT [facility]VER[facility] - 6 6 [facility] OUTPATIEN INC T OFFICE 87732 [facility] OUTPATIEN 5 5 [facility] 15 MINUTES OFFICE 30463 [facility] JOSE OUTPATIEN 5 5 PHYSICIAN [place] T VISIT S GROUP 15 MINUTES OFFICE 59345 [facility] OUT[facility] 5 5 PHYSICIAN [place] T VISIT S GROUP 15 MINUTES OFFICE 43615 [facility] 5 5 PHYSICIAN [place] T VISIT S GROUP 15 MINUTES OFFICE 72121 [facility] 4 4 PHYSICIAN EUG T VISIT S GROUP 10 MINUTES [facility] PETTY - [address] [facility] OUTPATIEN [facility] T
--- OUTSIDE RECORDS SUMMARY | 2017-01-03 12:34 | External Medical Summary Rpt ---
Author Author , JASON GOMEZ Address Unknown Phone [email or web address] Immunization Name Date Rout CVX Reac Dose Comm Prov Is Faci e tion ent ider Refu lity Give sed n Tdap 02- 115 999 Hist H149 No H149 , 3-20 oric Adso 07 al rbed Info rmat ion - Sour ce Unsp ecif ied
--- OUTSIDE RECORDS SUMMARY | 2017-01-03 12:35 | External Medical Summary Rpt ---
Author Author JASON Dudley, [employer] Organization [employer] Address Unknown Phone Unavailable Results Cardiac enzymes Observa Value Referen Units Interpr Notes Date tion ce etation Range Creatine 0 - 4.0 U/L Normal No Dec 31 kinase.MB informati 2016 4:00 /Creatine on in AM source kinase.to data juan manuel [Ratio] in Serum or Plasma Creatine 0.0 - 3.6 ng/mL Normal No Dec 31 kinase.MB informati 2016 4:00 on in AM [Mass/vol source ume] in data Serum or Plasma Creatine 26 - 192 U/L High No Dec 31 kinase informati 2016 4:00 [Enzymati on in AM c source activity/ data volume] in Serum or Plasma Troponin 0.00 - ng/mL Normal No Dec 31 I.cardiac 0.06 informati 2016 4:00 on in AM [Mass/vol source ume] in data Serum or Plasma Basic metabolic panel in Blood Observa Value Referen Units Interpr Notes Date ti ce etation Range Urea 7 - 18 mg/dL No No Dec 31 nitrogen informati informati 2016 4:00 [Mass/vol on in on in AM ume] in source source Serum or data data Plasma Calcium 8.5 - mg/dL Low No Dec 31 [Mass/vol 10.1 informati 2016 4:00 ume] in on in AM Serum or source Plasma data Chloride 98 - 107 mmoL/L Normal No Dec 31 [Moles/vo informati 2016 4:00 lume] in on in AM Serum or source Plasma data Carbon 21.0 - mmoL/L Normal No Dec 31 dioxide, 32.0 informati 2016 4:00 total on in AM [Moles/vo source lume] in data Serum or Plasma Creatinin 0.55 - mg/dL Normal No Dec 31 e 1.02 informati 2016 4:00 [Mass/vol on in AM ume] in source Serum or data Plasma Creatinin 50 - 200 ML/MIN Normal No Dec 31 e renal informati 2016 4:00 clearance on in AM source predicted data by Cockcroft -Gault formula Estimated 59- ML/MIN No REFERENCE Dec 31 informati RANGE: 2016 4:00 glomerula on in >60 AM r source ML/MIN/1. filtratio data 73 SQUARE n rate METERSIf (GF this patient is -A merican, then multiply theresult by 1.210. Glucose 74 - 106 mg/dL High No Dec 31 [Mass/vol informati 2016 4:00 ume] in on in AM Serum or source Plasma data Potassium 3.5 - 5.1 mmoL/L Normal No Dec 31 inform2016 4:00 [Moles/vo on in AM lume] in source Serum or data Plasma Sodium 136 - 145 mmoL/L Normal No Dec 31 [Moles/vo informati 2016 4:00 lume] in on in AM Serum or source Plasma data CBC W Auto Differential panel in Blood Observa Value Referen Units Interpr Notes Date tion ce etation Range Basophils 0 - 0.2 K/MM3 Normal No Dec 31 inform2016 4:00 [#/volume on in AM ] in source Blood by data Automated count Basophils 0.1 - 2.0 % Normal No Dec 31 / informati 2016 4:00 leukocyte on in AM s in source Blood by data Automated count Eosinophi 0.0 - 0.4 K/mm3 Normal No Dec 31 ls ati 2016 4:00 [#/volume on in AM ] in source Blood by data Automated count Eosinophi 0.1 - % Normal No Dec 31 ls/100 12.0 informati 2016 4:00 leukocyte on in AM s in source Blood by data Automated count Granulocy 1.8 - 7.8 K/mm3 Normal No Dec 31 ashley informati 2016 4:00 [#/volume on in AM ] in source Blood by data Automated count Granulocy 37.0 - % High No Dec 31 ashley/100 80.0 informati 2016 4:00 leukocyte on in AM s in source Blood by data Automated count Hematocri 37.0 - % Low No Dec 31 t [Volume 47.0 informati 2016 4:00 on in AM Fraction] source of Blood data Hemoglobi 12.2 - g/dL Low No Dec 31 n 16.2 ati 2016 4:00 [Mass/vol on in AM ume] in source Blood data Lymphocyt 0.7 - 4.5 K/mm3 Normal No Dec 31 es informati 2016 4:00 [#/volume on in AM ] in source Unspecifi data ed specimen by Automated count Lymphocyt 10 - 50.0 % Normal No Dec 31 es inform2016 4:00 [#/volume on in AM ] in source Unspecifi data ed specimen by Automated count Erythrocy 27 - 31.2 pg High No Dec 31 te mean informati 2016 4:00 corpuscul on in AM ar source hemoglobi data n [Entitic mass] Erythrocy 31.8 - g/dl Normal No Dec 31 te mean 35.4 informati 2016 4:00 corpuscul on in AM ar source hemoglobi data n concentra tion [Mass/vol ume] by Automated count Erythrocy 82.2 - fl Normal No Dec 31 te mean 97.8 informati 2016 4:00 corpuscul on in AM ar volume source [Entitic data volume] by Automated count Monocytes 0.1 - 1.0 K/mm3 Normal No Dec 31 inform2016 4:00 [#/volume on in AM ] in source Blood by data Automated count Monocytes 1.7 - 9.3 % Normal No Dec 31 /100 informati 2016 4:00 leukocyte on in AM s in source Blood by data Automated count Platelet 7.4 - fl Normal No Dec 31 mean 10.4 informati 2016 4:00 volume on in AM [Entitic source volume] data in Blood by Automated count Platelets 142 - 424 K/mm3 Normal No Dec 312016 4:00 [#/volume on in AM ] in source Blood data Erythrocy 4.2 - 5.4 M/mm3 Low No Dec 31 ashley informati 2016 4:00 [#/volume on in AM ] in source Amniotic data fluid Erythrocy 11.5 - % Normal No Dec 31 te 17.5 informati 2016 4:00 distribut on in AM ion width source [Entitic data volume] by Automated count Leukocyte 4.8 - K/MM3 No No Dec 31 s 10.8 informati informati 2016 4:00 [#/volume on in on in AM ] in source source Blood data data Cardiac enzymes Observa Value Referen Units Interpr Notes Date tion ce etation Range Creatine 0 - 4.0 U/L Normal No Dec 31 kinase.MB informati 2016 1:05 /Creatine on in AM source kinase.to data juan manuel [Ratio] in Serum or Plasma Creatine 0.0 - 3.6 ng/mL High No Dec 31 kinase.MB informati 2017 1:05 on in AM [Mass/vol source ume] in data Serum or Plasma Creatine 26 - 192 U/L High No Dec 31 kinase informati 2017 1:05 [Enzymati on in AM c source activity/ data volume] in Serum or Plasma Troponin 0.00 - ng/mL Normal 0.04 - Dec 31 I.cardiac 0.06 0.49 IS 2017 1:05 AN AM [Mass/vol INDETERMI ume] in NANT Serum or ZONEAnd Plasma can be consisten t with the following diseases: Trauma Criticall y ill patients Mattson >30% TBSACHF Hypothyro idism Amyloidos isHyperte nsion Myocardit is SepsisHyp otension Rhabdomyo lysis Vital exhaust.P ostop surgery Pulmonary embolism CVARenal failure Acute neurologi claudio disease Atrial fib. Drugs identified in Urine by Screen method Observa Value Referen Units Interpr Notes Date tion ce etation Range Positive urine drug screen samples are stored for 7 days. Contact the Lab if confirmation of positives is needed. Ampheta NEGATIV <1000 ng/mL No No Dec 30 mine E informa informa 2017 [Presen tion in tion in 8:20 PM ce] in source source Urine data data by Screen method Barbitura <200 ng/mL No No Dec 30 ashley informati informati 2017 8:20 [Mass/vol on in on in PM ume] in source source Urine by data data Screen method Benzodiaz 200 ng/mL ng/mL High This is Dec 30 epines an 2017 8:20 [Mass/vol UNCONFIRM PM ume] in ED Serum or result. Plasma by This Screen result is method for medicalpu rposes and/or treatment only. Cocaine <300 ng/g No No Dec 30 [Mass/vol informati informati 2017 8:20 ume] in on in on in PM Unspecifi source source ed data data specimen Methadone <300 ng/mL No No Dec 30 informati informati 2017 8:20 [Mass/vol on in on in PM ume] in source source Unspecifi data data ed specimen Opiates <300 ng/mL No No Dec 30 [Mass/vol informati informati 2017 8:20 ume] in on in on in PM Unspecifi source source ed data data specimen Phencycli <25 ng/mL No No Dec 30 dine informati informati 2016 8:20 [Mass/vol on in on in PM ume] in source source Unspecifi data data ed specimen 11-Hydr NEGATIV <50 ng/mL No No Dec 30 oxy E informa informa 2017 delta-9 tion in tion in 8:20 PM source source tetrahy data data drocann abinol [Presen ce] in Unspeci fied specime n Choriogonadotropin.beta subunit [Units] in 24 hour Urine Observa Value Referen Units Interpr Notes Date tion ce etation Range Choriogon NEG No No No Dec 30 adotropin informati informati informati 2016 8:20 .beta on in on in on in PM subunit source source source [Units] data data data in 24 hour Urine CBC W Auto Differential panel in Blood Observa Value Referen Units Interpr Notes Date tion ce etation Range Basophils 0 - 0.2 K/MM3 Normal No Dec 30 informati 2016 8:20 [#/volume on in PM ] in source Blood by data Automated count Basophils 0.1 - 2.0 % Normal No Dec 30 informati 2016 8:20 leukocyte on in PM s in source Blood by data Automated count Eosinophi 0.0 - 0.4 K/mm3 Normal No Dec 30 ls informati 2016 8:20 [#/volume on in PM ] in source Blood by data Automated count Eosinophi 0.1 - % Normal No Dec 30 ls/100 12.0 informati 2016 8:20 leukocyte on in PM s in source Blood by data Automated count Granulocy 1.8 - 7.8 K/mm3 Normal No Dec 30 ashley informati 2016 8:20 [#/volume on in PM ] in source Blood by data Automated count Granulocy 37.0 - % Normal No Dec 30 ashley/100 80.0 informati 2016 8:20 leukocyte on in PM s in source Blood by data Automated count Hematocri 37.0 - % Normal No Dec 30 t [Volume 47.0 informati 2016 8:20 on in PM Fraction] source of Blood data Hemoglobi 12.2 - g/dL Normal No Dec 30 n 16.2 informati 2016 8:20 [Mass/vol on in PM ume] in source Blood data Lymphocyt 0.7 - 4.5 K/mm3 Normal No Dec 30 es informati 2016 8:20 [#/volume on in PM ] in source Unspecifi data ed specimen by Automated count Lymphocyt 10 - 50.0 % Normal No Dec 30 es informati 2016 8:20 [#/volume on in PM ] in source Unspecifi data ed specimen by Automated count Erythrocy 27 - 31.2 pg Normal No Dec 30 te mean informati 2016 8:20 corpuscul on in PM ar source hemoglobi data n [Entitic mass] Erythrocy 31.8 - g/dl Normal No Dec 30 te mean 35.4 informati 2016 8:20 corpuscul on in PM ar source hemoglobi data n concentra tion [Mass/vol ume] by Automated count Erythrocy 82.2 - fl Normal No Dec 30 te mean 97.8 informati 2016 8:20 corpuscul on in PM ar volume source [Entitic data volume] by Automated count Monocytes 0.1 - 1.0 K/mm3 Normal No Dec 30 informati 2016 8:20 [#/volume on in PM ] in source Blood by data Automated count Monocytes 1.7 - 9.3 % Normal No Dec 30 /100 informati 2017 8:20 leukocyte on in PM s in source Blood by data Automated count Platelet 7.4 - fl Normal No Dec 30 mean 10.4 informati 2017 8:20 volume on in PM [Entitic source volume] data in Blood by Automated count Platelets 142 - 424 K/mm3 Normal No Dec 30 informati 2016 8:20 [#/volume on in PM ] in source Blood data Erythrocy 4.2 - 5.4 M/mm3 Low No Dec 30 ashley informati 2017 8:20 [#/volume on in PM ] in source Amniotic data fluid Erythrocy 11.5 - % Normal No Dec 30 te 17.5 informati 2017 8:20 distribut on in PM ion width source [Entitic data volume] by Automated count Leukocyte 4.8 - K/MM3 Normal No Dec 30 s 10.8 informati 2016 8:20 [#/volume on in PM ] in source Blood data
[2017-01-03 13:00] VITALS: BP 133/80
== END 2017-01-03 13:00 | disposition home or self-care (01) ==
LOC: ER 11:30 → UTC 11:30
DX: M62.838 Other muscle spasm (principal); M54.2 Cervicalgia

== ENCOUNTER → 2017-05-08 | Outpatient (CLI) | payer OTHER, MEDICAID ==
[2017-05-08 19:14] LABS: AMPHETAMINES/METAMPHETAMINES NEGATIVE ng/mL (<1000)
== END ==
LOC: LAB 17:50
PROVIDERS: Emergency Medicine
DX: Z79.899 Other long term (current) drug therapy (principal)

== ENCOUNTER 2017-05-25 12:44 | Emergency (ER) | payer MEDICAID ==
[~2017-05-25] VITALS: Ht 139.7 cm; Wt 49.0 kg
--- OUTSIDE RECORDS SUMMARY | 2017-05-25 13:04 | External Medical Summary Rpt | CCD ---
Author Author , JASON GOMEZ Address Unknown Phone [email or web address] Purpose Continuity of Care Document - 12-30-2016 through 2016 Problems Code Diagnosis DOS Provider Status [id number] R55 SYNCOPE AND COLLAPSE Results Labs Lab Lab Date Result Refere Interp Status Commen Order Detail nces retati t Range on Urine 9-analyte drugs of abuse screening (05-08-2017 16:00) Comment: Positive urine drug screen samples are stored for 7 days. Comment: Contact the Lab if confirmation of positives is needed. 11-hydr --2 NEGATIV <50 complet oxy 017 E ed delta-9 16:00 NEGATIV E L tetrahy ng/mL drocann abinol Phencyc = <25 complet lidine 017 NEGATIV ed measure 16:00 E ng/mL ment (mass/v olume) Opiates --2 = <300 complet 017 NEGATIV ed measure 16:00 E ng/mL ment (mass/v olume) Methado -10-2 = <300 complet ne 017 NEGATIV ed measure 16:00 E ng/mL ment (mass/v olume) Cocaine 05-08-2 = <300 complet 017 NEGATIV ed measure 16:00 E ng/g ment (mass/v olume) Serum 05-08-2 = 200 complet or 017 POSITIV ng/mL ed plasma 16:00 E ng/mL benzodi azepine s measure m Comment: This is an UNCONFIRMED result. This result is for medical Comment: purposes and/or treatment only. Urine 11-10-2 = <200 complet barbitu 017 NEGATIV ed rates 16:00 E ng/mL measure ment by screen Urine NEGATIV <1000 complet ampheta 017 E ed mine 16:00 NEGATIV screeni E L ng test ng/mL Drugs identified in Urine by Screen method (05-08-2017 16:00) Ampheta 11-10-2 NEGATIV <1000 complet mine 017 E ed [Presen 16:00 ce] in Urine by Screen method 11-Hydr NEGATIV <50 complet oxy 017 E ed delta-9 16:00 tetrahy drocann abinol [Presen ce] in Unspeci fied specime n Drugs identified in Urine by Screen method (02-04-2017 15:10) Ampheta NEGATIV <1000 complet mine 017 E ed [Presen 15:10 ce] in Urine by Screen method 11-Hydr NEGATIV <50 complet oxy 017 E ed delta-9 15:10 tetrahy drocann abinol [Presen ce] in Unspeci fied specime n Drugs identified in Urine by Screen method (12-30-2016 20:20) Ampheta NEGATIV <1000 complet mine 017 E ed [Presen 20:20 ce] in Urine by Screen method 11-Hydr NEGATIV <50 complet oxy 017 E ed delta-9 20:20 tetrahy drocann abinol [Presen ce] in Unspeci fied specime n
--- OUTSIDE RECORDS SUMMARY | 2017-05-25 13:04 | External Medical Summary Rpt | CCD ---
Author Author , JASON GOMEZ Address Unknown Phone .[employer] Immunization Name Date Rout CVX Reac Dose Comm Prov Is Faci e tion ent ider Refu lity Give sed n Tdap 02- 115 999 Hist H149 No H149 , 3-20 oric Adso 07 al rbed Info rmat ion - Sour ce Unsp ecif ied
--- OUTSIDE RECORDS SUMMARY | 2017-05-25 13:04 | External Medical Summary Rpt | CCD ---
Author Author [employer] Organization [employer] Address Unknown Phone Unavailable Purpose Continuity of Care Document - through 2016
--- OUTSIDE RECORDS SUMMARY | 2017-05-25 13:04 | External Medical Summary Rpt | CCD ---
Author Author , JASON GOMEZ Address Unknown Phone [email or web address] Purpose Continuity of Care Document - 12-30-2016 through 2016 Problems Code Diagnosis DOS Provider Status [id number] R55 SYNCOPE AND COLLAPSE Results Labs Lab [...]
--- OUTSIDE RECORDS SUMMARY | 2017-05-25 13:04 | External Medical Summary Rpt | CCD ---
Author Author , JASON GOMEZ Address Unknown Phone [email or web address] Immunization Name Date Rout CVX Reac Dose Comm Prov Is Faci e tion ent ider Refu lity Give sed n Tdap 02- 115 999 Hist H149 No H149 , 3-20 oric Adso 07 al rbed Info rmat ion - Sour ce Unsp ecif ied
--- OUTSIDE RECORDS SUMMARY | 2017-05-25 13:05 | External Medical Summary Rpt ---
Author Author JASON Dudley, [employer] Organization [employer] Address Unknown Phone Unavailable Results Drugs identified in Urine by Screen method Observa Value Referen Units Interpr Notes Date tion ce etation Range Positive urine drug screen samples are stored for 7 days. Contact the Lab if confirmation of positives is needed. Ampheta NEGATIV <1000 ng/mL No No May 08 mine E informa informa 2016 [Presen tion in tion in 4:00 PM ce] in source source Urine data data by Screen method Barbitura <200 ng/mL No No May 08 ashley informati informati 2017 4:00 [Mass/vol on in on in PM ume] in source source Urine by data data Screen method Benzodiaz 200 ng/mL ng/mL High This is May 08 epines an 2017 4:00 [Mass/vol UNCONFIRM PM ume] in ED Serum or result. Plasma by This Screen result is method for medicalpu rposes and/or treatment only. Cocaine <300 ng/g No No May 08 [Mass/vol informati informati 2016 4:00 ume] in on in on in PM Unspecifi source source ed data data specimen Methadone <300 ng/mL No No May 08 informati informati 2016 4:00 [Mass/vol on in on in PM ume] in source source Unspecifi data data ed specimen Opiates <300 ng/mL No No May 08 [Mass/vol informati informati 2016 4:00 ume] in on in on in PM Unspecifi source source ed data data specimen Phencycli <25 ng/mL No No May 08 dine informati informati 2017 4:00 [Mass/vol on in on in PM ume] in source source Unspecifi data data ed specimen 11-Hydr NEGATIV <50 ng/mL No No May 08 oxy E informa informa 2017 delta-9 tion in tion in 4:00 PM source source tetrahy data data drocann abinol [Presen ce] in Unspeci fied specime n Drugs identified in Urine by Screen method Observa Value Referen Units Interpr Notes Date tion ce etation Range Positive urine drug screen samples are stored for 7 days. Contact the Lab if confirmation of positives is needed. Ampheta NEGATIV <1000 ng/mL No No Feb 04 mine E informa informa 2017 [Presen tion in tion in 3:10 PM ce] in source source Urine data data by Screen method Barbitura <200 ng/mL No No Feb 04 ashley informati informati 2017 3:10 [Mass/vol on in on in PM ume] in source source Urine by data data Screen method Benzodiaz 200 ng/mL ng/mL High This is Feb 04 epines an 2017 3:10 [Mass/vol UNCONFIRM PM ume] in ED Serum or result. Plasma by This Screen result is method for medicalpu rposes and/or treatment only. Cocaine <300 ng/g No No Feb 04 [Mass/vol informati informati 2016 3:10 ume] in on in on in PM Unspecifi source source ed data data specimen Methadone <300 ng/mL No No Feb 04 informati informati 2017 3:10 [Mass/vol on in on in PM ume] in source source Unspecifi data data ed specimen Opiates <300 ng/mL No No Feb 04 [Mass/vol informati informati 2016 3:10 ume] in on in on in PM Unspecifi source source ed data data specimen Phencycli <25 ng/mL No No Feb 04 dine informati informati 2016 3:10 [Mass/vol on in on in PM ume] in source source Unspecifi data data ed specimen 11-Hydr NEGATIV <50 ng/mL No No Feb 04 oxy E informa informa 2017 delta-9 tion in tion in 3:10 PM source source tetrahy data data drocann abinol [Presen ce] in Unspeci fied specime n Cardiac enzymes Observa Value Referen Units Interpr [...] Interpr Notes Date tion ce etation Range Urea 7 - 18 [...] ML/MIN No REFERENCE Dec 31 informati RANGE: 2017 4:00 glomerula on in >60 AM r source ML/MIN/1. filtratio data 73 SQUARE n rate METERSIf (GF this patient is -A merican, then multiply theresult by 1.210. Glucose 74 - 106 mg/dL High No Dec 31 [Mass/vol informati 2016 4:00 ume] in on in AM Serum or source Plasma data Potassium 3.5 - 5.1 mmoL/L Normal No Dec 31 informati 2016 4:00 [Moles/vo on in AM lume] in [...] - 2.0 % Normal No Dec 31 /100 informati 2016 4:00 leukocyte on in AM s in source Blood by data Automated count Eosinophi 0.0 - 0.4 K/mm3 Normal No Dec 31 ls informati 2016 4:00 [#/volume on in AM [...] g/dL Low No Dec 31 n 16.2 informati 2016 4:00 [Mass/vol on in AM ume] in source Blood data Lymphocyt 0.7 - 4.5 K/mm3 Normal No Dec 31 es informati 2016 4:00 [#/volume on in AM ] in source Unspecifi data ed specimen by Automated count Lymphocyt 10 - 50.0 % Normal No Dec 31 es informati 2016 [...] 142 - 424 K/mm3 Normal No Dec 31 informati 2016 4:00 [#/volume on in AM [...] Automated count Leukocyte 4.8 - K/MM3 No Dec 31 s 10.8 informati informati 2017 4:00 [#/volume on in on in AM ] in source source Blood data data Cardiac enzymes Observa Value Referen Units Interpr Notes Date tion ce etation Range Creatine 0 - 4.0 U/L Normal No Dec 31 kinase.MB inform2016 1:05 /Creatine on in AM source kinase.to data juan manuel [Ratio] in Serum or Plasma Creatine 0.0 - 3.6 ng/mL High Dec 31 kinase.MB informati 2017 1:05 on [...] No No Dec 30 [Mass/vol informati informati 2016 8:20 ume] in on in on in [...] No No Dec 30 dine informati informati 2017 8:20 [Mass/vol on in [...] No Dec 30 adotropin informati informati informati 2017 8:20 .beta on in on in on [...] - 2.0 % Normal No Dec 30 /100 informati 2016 8:20 leukocyte on in PM [...] - 1.0 K/mm3 Normal No Dec 30 inform2016 8:20 [#/volume on in PM ] in source Blood by data Automated count Monocytes 1.7 - 9.3 % Normal No Dec 30 /100 informati 2016 8:20 leukocyte on in PM s in source Blood by data Automated count Platelet 7.4 - fl Normal No Dec 30 mean 10.4 informati 2016 8:20 volume on in PM [Entitic source volume] data in Blood by Automated count Platelets 142 - 424 K/mm3 Normal No Dec 30 informati 2016 8:20 [#/volume on in PM ] in source Blood data Erythrocy 4.2 - 5.4 M/mm3 Low No Dec 30 ashley informati 2016 8:20 [#/volume on in PM ] in source Amniotic data fluid Erythrocy 11.5 - % Normal No Dec 30 te 17.5 informati 2016 8:20 distribut on in PM ion width source [Entitic data volume] by Automated count Leukocyte 4.8 - K/MM3 Normal No Dec 30 s 10.8 informati 2016 8:20 [#/volume on in PM ] in source Blood data
--- NOTE | 2017-05-25 13:09 | Emergency Room Report ---
History of Present Illness Time Seen by 130Neda Presenting Problem in Triage Pt arrived:Walked Presenting Problem:PT PRESENTS WITH LAC TO LT MIDDLE FINGER. 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 N Clinical Suspician of Infection? N Mental Status: 1 - Regular (Normal Baseline) Sepsis Risk:Low Sepsis Risk Have you (or family members/close friends) recently traveled outside the [place]? N If Yes, where/when: Have you had exposure to infectious disease within the past month? N TB? Other? Specify: Source patient, RN notes reviewed Exam Limitations no limitations Comment Pt comes to the ED with a laceration on her left middle finger caused by her son closing door on it. Last Tetanus was about 7 years ago Cardiac Chest Pain Chest pain indicative of cardiac No ALLERGIES Coded Allergies: No Known Allergies (08/13/15) Home Medications Reported Medications Bupropion Hcl (Bupropion HCl Sr) 150 MG PO QAM #30 Alprazolam 0.5 MG PO BID #60 TAB Medroxyprogesterone Acetate (Depo-Provera) 150 MG IM 3 MONTHS History Medical History General CAD? No Angina: No PR: No Hypertension? No Hyperlipidemia? No CHF? No DVT? No PE? No COPD? No Asthma? No Anemia? No GERD? No Gastric ulcers? No GI Bleed? No Hernia? No Thyroid Problems? No Hypothyroidism? No CVA? No Seizures? No Diabetes? No Renal Insuffiency? No End Stage Renal Disease? No UTI? No Stones? No BPH? No GB Disease: Yes Nephritic Syndrome? No Asplenia? No Hepatitis? No Sickle Cell Disease? No Arthritis? No Migraines? No Cataracts? No Glaucoma? No MRSA? No HIV? No TB? No Anxiety? No Depression? No Cancer? No More? 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 No Results/Orders Current Medication Orders Sig/Michael Start time Last Medication Dose Route Stop Time Status Admin Bacitracin 0 .STK-MED ONE 05/25 1328 DC TP Lidocaine HCl 0 .STK-MED ONE 05/25 1311 DC .ROUTE Bacitracin 0 .STK-MED ONE 05/25 1310 DC TP Orders Procedure Date/time Status [id number] (MIDDLE)-3 VIEWS 05/25 1253 Active Procedures Laceration/Wound Repair Laceration/Wound Repair Risks/benefits discussed with pt/guardian? Yes Tetanus status up to date Wound Location finger(s) Wound Length (cm) 1 Wound's Depth, Shape sucutaneous tissue, linear Wound Explored clean Risk of retained FB explained to pt/guardian? No Irrigated w/ Saline (ccs) 50 Wound Prep Hibiclens, Saline Anesthesia 1% Lidocaine Volume Anesthetic (ccs) 1 Wound Debrided none Wound Repaired With sutures Suture Size/Type 5:0, Ethilon Layer Closure No Total Number Sutures 4 Sterile Dressing Applied Yes Splint Applied No Departure Departure Time of Disposition 1328 Disposition DC Home or Self Care(routine) Clinical Impression Primary Impression: Laceration of left middle finger w/o foreign body w/o damage to nail Qualifiers: Encounter type: initial encounter Qualified Code: S61.213A - Laceration without foreign body of left middle finger without damage to nail, initial encounter Condition STABLE Referrals Jennifer MERCER,Winston Abbasi (Family): 2 Days-Call Office Patient Instructions DI for Laceration Repair, Laceration Repair Additional Instructions Keep wound clean and stitches dry for 2 days, then may soak in water or epsom salts. Change dressing daily. Followup with Dr. Rodriguez in 2 days to check stitches and in 10 days to remove Discharge Counseling Counseled pt/family regarding diagnosis, medications/RX, home care, follow up needs Prescriptions Current Visit Scripts Cephalexin (Keflex 500MG) 500 MG PO QID #40 CAP MUPIROCIN 2% (Bactroban Oint) 1 GM TP DAILY #1 TUBE ED Critical Care Critical Care No If Critical Care minutes are documented, the time involved in the performance of seperately reportable procedures was not counted toward critical care time documented. I directly delivered medical care to this critically ill and/or injured patient. Timely evaluation and treatment was necessary to address the significant organ system(s) dysfunction present in this patient. at 1332
--- NOTE | 2017-05-25 13:09 | Emergency Room Report ---
History of Present Illness Time Seen by [id number] Presenting Problem in Triage Pt arrived:Walked Presenting Problem:PT PRESENTS WITH LAC TO LT MIDDLE FINGER. 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 N Clinical Suspician of Infection? N Mental Status: 1 - Regular (Normal Baseline) Sepsis Risk:Low Sepsis Risk Have you (or family members/close friends) recently traveled outside the [place]? N If Yes, where/when: Have you had exposure to infectious disease within the past month? N TB? Other? Specify: Source patient, RN notes reviewed Exam Limitations no limitations Comment Pt comes to the ED with a laceration on her left middle finger caused by her son closing door on it. Last Tetanus was about 7 years ago Cardiac Chest Pain Chest pain indicative of cardiac No ALLERGIES Coded Allergies: No Known Allergies (08/13/15) Home Medications Reported Medications Bupropion Hcl (Bupropion HCl Sr) 150 MG PO QAM #30 Alprazolam 0.5 MG PO BID #60 TAB Medroxyprogesterone Acetate (Depo-Provera) 150 MG IM 3 MONTHS History Medical History General CAD? No Angina: No DE: No Hypertension? No Hyperlipidemia? No CHF? No DVT? No PE? No COPD? No Asthma? No Anemia? No GERD? No Gastric ulcers? No GI Bleed? No Hernia? No Thyroid Problems? No Hypothyroidism? No CVA? No Seizures? No Diabetes? No Renal Insuffiency? No End Stage Renal Disease? No UTI? No Stones? No BPH? No GB Disease: Yes Nephritic Syndrome? No Asplenia? No Hepatitis? No Sickle Cell Disease? No Arthritis? No Migraines? No Cataracts? No Glaucoma? No MRSA? No HIV? No TB? No Anxiety? No Depression? No Cancer? No More? 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 No Results/Orders Current Medication Orders Sig/Michael Start time Last Medication Dose Route Stop Time Status Admin Bacitracin 0 .STK-MED ONE 05/25 1328 DC TP Lidocaine HCl 0 .STK-MED ONE 05/25 1311 DC .ROUTE Bacitracin 0 .STK-MED ONE 05/25 1310 DC TP Orders Procedure Date/time Status [id number] (MIDDLE)-3 VIEWS 05/25 1253 Active Procedures Laceration/Wound Repair Laceration/Wound Repair Risks/benefits discussed with pt/guardian? Yes Tetanus status up to date Wound Location finger(s) Wound Length (cm) 1 Wound's Depth, Shape sucutaneous tissue, linear Wound Explored clean Risk of retained FB explained to pt/guardian? No Irrigated w/ Saline (ccs) 50 Wound Prep Hibiclens, Saline Anesthesia 1% Lidocaine Volume Anesthetic (ccs) 1 Wound Debrided none Wound Repaired With sutures Suture Size/Type 5:0, Ethilon Layer Closure No Total Number Sutures 4 Sterile Dressing Applied Yes Splint Applied No Departure Departure Time of Disposition 1328 Disposition DC Home or Self Care(routine) Clinical Impression Primary Impression: Laceration of left middle finger w/o foreign body w/o damage to nail Qualifiers: Encounter type: initial encounter Qualified Code: S61.213A - Laceration without foreign body of left middle finger without damage to nail, initial encounter Condition STABLE Referrals Jennifer MERCER,Winston Abbasi (Family): 2 Days-Call Office Patient Instructions DI for Laceration Repair, Laceration Repair Additional Instructions Keep wound clean and stitches dry for 2 days, then may soak in water or epsom salts. Change dressing daily. Followup with Dr. Rodriguez in 2 days to check stitches and in 10 days to remove Discharge Counseling Counseled pt/family regarding diagnosis, medications/RX, home care, follow up needs Prescriptions Current Visit Scripts Cephalexin (Keflex 500MG) 500 MG PO QID #40 CAP MUPIROCIN 2% (Bactroban Oint) 1 GM TP DAILY #1 TUBE ED Critical Care Critical Care No If Critical Care minutes are documented, the time involved in the performance of seperately reportable procedures was not counted toward critical care time documented. I directly delivered medical care to this critically ill and/or injured patient. Timely evaluation and treatment was necessary to address the significant organ system(s) dysfunction present in this patient. at 1337
[2017-05-25] MEDS ORDERED: BACTROBAN2% TP (13:31)
[2017-05-25] MEDS ORDERED: KEFLEX500 M1 PO (13:31)
[2017-05-25 13:34] VITALS: BP 132/79
--- NOTE | 2017-05-25 14:06 | RADIOLOGY REPORT PS360 ---
[id number] (MIDDLE)-3 VIEWS HISTORY: Pain SHUT FINGER IN DOOR; LAC PRESENT ORDERING PHYSICIAN: Cain Ward MD PATIENT AGE: 42 years COMPARISON: None FINDINGS: No fracture or dislocation is evident. No significant degenerative change. No lytic or blastic change. Unremarkable soft tissues IMPRESSION: Negative left third finger
== END 2017-05-25 13:34 | disposition home or self-care (01) ==
LOC: ER 12:44
PROC: 0HQGXZZ Repair Left Hand Skin, External Approach (ICD-10-PCS; principal; 2017-05-25)
DX: S61.213A Laceration without foreign body of left middle finger without damage to nail, initial encounter (principal); W23.1XXA Caught, crushed, jammed, or pinched between stationary objects, initial encounter; Y92.89 Other specified places as the place of occurrence of the external cause